=== PATIENT | male | born 1945 | race Caucasian/White ===

== ENCOUNTER 2021-11-10 12:08 | Emergency (ER) | payer OTHER ==
[~2021-11-10] VITALS: Ht 170 cm; Wt 75.0 kg
[2021-11-10] MEDS ORDERED: TETRACAINE 0.5% OPHTH SOLN 4 ML BTL (SINGLE DOSE ONLY) ONE (12:14)
[2021-11-10] MEDS ORDERED: FLUORESCEIN (FLUOR-I-STRIPS) 1 MG STRP ONE (12:14)
--- NOTE | 2021-11-10 12:30 | ED General ---
General Chief Complaint: Foreign Body Stated Complaint: GLASS IN EYE Source of Information: Patient Exam Limitations: No Limitations History of Present Illness Date Seen by Provider: Nov 10, 2021 Time Seen by Provider: 12:00 Initial Comments Patient is a 75 male who presents with foreign body sensation in both eyes. Patient was working on a tractor when a glass windshield broke sending shattered glass to his face and eyes. Patient washed eyes but reports residual foreign body sensation under right upper eyelid. No change in vision. No other symptoms or complaints. Timing/Duration: 1-3 Hours Severity: Mild Modifying Factors: improves with Other Associated Systoms: Other Allergies and Home Medications Patient Home Medication List Home Medication List Reviewed: Yes Review of Systems Review of Systems Constitutional: see HPI EENTM: see HPI All Other Systems Reviewed Negative Unless Noted: Yes Past [id number]-Uxfxpl-Ayqrng Hx Patient Social History Tobacco Use?: No Use of E-Cig and/or Vaping dev: No Substance use?: No Alcohol Use?: No Pt feels they are or have been: No Immunizations Up To Date First/Initial COVID19 Vaccinat: 2020 Second COVID19 Vaccination Willy: 2020 Third COVID19 Vaccination Date: 2020 COVID19 Vaccine Hat Body Inspector: MODERNA Physical Exam Vital Signs Vital Signs - First Documented 11/10/21 12:15 Temp 36.4 Pulse 76 Resp 18 B/P (MAP) 126/72 (90) Pulse Ox 98 O2 Delivery Room Air Capillary Refill : Height, Weight, BMI Height: '" Weight: lbs. oz. kg; BMI Method: General Appearance: No Apparent Distress, WD/WN Eyes: Bilateral Eye Normal Inspection, Bilateral Eye PERRL, Bilateral Eye EOMI HEENT: PERRL/EOMI, Other (No corneal abrasion or foreign body identified. ) Focused Exam Sepsis Stage: Ruled Out Progress/Results/Core Measures Suspected Sepsis SIRS Temperature: Pulse: Respiratory Rate: Blood Pressure / Mean: Results/Orders My Orders Orders - SAMANTHA TAYLOR DO Tetracaine 0.5% Ophth Fanny Sdv (Tetracai (11/10/21 12:14) Fluorescein Strips ([id number]-X-[id number]) (11/10/21 12:14) Vital Signs/I&O 11/10/21 12:15 Temp 36.4 Pulse 76 Resp 18 B/P (MAP) 126/72 (90) Pulse Ox 98 O2 Delivery Room Air Capillary Refill : Departure Communication (Admissions) Tetracaine applied, eyes irrigated and everted, no foreign bodies identified. Will place on antibiotics and have follow-up with eye doctor follow-up. Impression Primary Impression: Sensation of foreign body in eye Disposition: 01 HOME, SELF-CARE Condition: Stable Departure-Patient Inst. Decision time for Depature: 12:38 Referrals: SELF,YOGESH FLOOD (PCP) Primary Care Physician Add. Discharge Instructions: You were evaluated in the ER for foreign body sensation in your eyelids. No foreign body or glass was found to be present. Please fill antibiotics and take as directed and follow-up with local eye doctor tomorrow if symptoms persist. Return to the ED if new or concerning symptoms. All discharge instructions reviewed with patient and/or family. Voiced understanding. Scripts Gatifloxacin (Gatifloxacin) 0.5 % Drops 2.5 ML OP Q4H, #2 DROPS Prov: SAMANTHA TAYLOR DO 11/10/21 SAMANTHA TAYLOR DO Nov 10, 2021 12:30
[2021-11-10] MEDS ORDERED: TETRACAINE 0.5% OPHTH SOLN 4 ML BTL (SINGLE DOSE ONLY) OP ONE (12:45)
[2021-11-10] MEDS ORDERED: [UNRECOGNIZED DRUG - CODE] OP (12:45)
[2021-11-10 12:53] VITALS: BP 126/72
[2021-11-10] MEDS ORDERED: TETANUS,DIPTH,PERTUSS P/F (BOOSTRIX) 0.5 ML VIAL IM ONE (13:00)
== END 2021-11-10 13:02 | disposition home or self-care (01) ==
LOC: ER FS 12:12
DX: H57.89 Other specified disorders of eye and adnexa (principal)
CPT/HCPCS: 90715; 99281